=== PATIENT | male | born 1955 | race Caucasian/White ===

== ENCOUNTER → 2016-09-18 | Outpatient (CLI) | payer OTHER ==
[~2016-09-18] MED LIST: FEOSOL325 MG PO; FLOMAX0.4 MG PO; FLORASTOR; FLORASTOR250 MG PO; INVANZ 1 G1 GM/100 M IV; LIORESAL10 MG PO; MELATONIN5 M2 PO; NEURONTIN400 MG PO; NORCO 5-325 MG1 TAB PO; PROTONIX40 MG PO; SENOKOT S (S1 TABLET PO; TYLENOL325 MG PO; XARELTO15 MG PO; XARELTO20 MG PO
== END | disposition disaster alternative care site (69) ==
LOC: GRAD 08:00
PROC: BP38Y0Z Magnetic Resonance Imaging (MRI) of Right Shoulder using Other Contrast, Unenhanced and Enhanced (ICD-10-PCS; principal; 2016-09-18)
DX: M24.9 Joint derangement, unspecified (principal); S46.811D Strain of other muscles, fascia and tendons at shoulder and upper arm level, right arm, subsequent encounter; S43.084D Other dislocation of right shoulder joint, subsequent encounter; S46.211D Strain of muscle, fascia and tendon of other parts of biceps, right arm, subsequent encounter; X58.XXXD Exposure to other specified factors, subsequent encounter; M19.011 Primary osteoarthritis, right shoulder